=== PATIENT | male | born 1960 | race Caucasian/White ===

== ENCOUNTER 2018-11-24 01:16 | Emergency (ER) | payer SELFPAY ==
[~2018-11-24] VITALS: Ht 185.4 cm; Wt 95.5 kg
[2018-11-24] MEDS ORDERED: ACETAMINOPHEN 500 MG TABLET PO ONE (03:30)
[2018-11-24] MEDS ORDERED: IBUPROFEN 600 MG TABLET PO ONE (03:30)
[2018-11-24 04:50] VITALS: BP 122/67
== END 2018-11-24 04:55 | disposition home or self-care (01) ==
LOC: EMS 01:18
DX: M79.632 Pain in left forearm (principal); F17.210 Nicotine dependence, cigarettes, uncomplicated
CPT/HCPCS: 99406

== ENCOUNTER 2019-10-03 08:05 | Emergency (ER) | payer MEDICAID ==
[~2019-10-03] VITALS: Ht 185.4 cm; Wt 95.5 kg
[2019-10-03 10:59] LABS: BASOPHILS % (AUTO) 0.8 % (0.0-2.0); EOSINOPHILS % (AUTO) 3.3 % (1.0-6.0); HEMATOCRIT 39.3 % (41-53); HEMOGLOBIN 13.2 g/dL (13.5-17.5); LYMPHOCYTES # (AUTO) 2.2 K/uL (1.0-4.8); LYMPHOCYTES % (AUTO) 39.8 % (22.0-44.0); MEAN CORPUSCULAR HEMOGLOBIN 31.6 pg (26.0-34.0); MEAN CORPUSCULAR HGB CONC 33.6 G/dL (31.0-37.0); MEAN CORPUSCULAR VOLUME 94 fL (80-100); MONOCYTES # (AUTO) 0.6 K/uL (0.1-1.0); NEUTROPHILS # (AUTO) 2.5 K/uL (1.8-7.7); NEUTROPHILS % (AUTO) 45.1 % (40.0-70.0); PLATELET COUNT (AUTO) 216 K/uL (150-450); RED BLOOD CELL COUNT(AUTO) 4.18 MIL/uL (4.50-5.90); RED CELL DISTRIBUTION WIDTH 14.1 % (11.5-14.5)
[2019-10-03 11:08] LABS: ANION GAP 4 mmol/L (8-16); CALCIUM, TOTAL 8.8 mg/dL (8.8-10.5); CARBON DIOXIDE 27 mmol/L (22-29); CHLORIDE 107 mmol/L (98-107); CREATININE 1.23 mg/dL (0.60-1.30); GLOMERULAR FILTR. RATE CALC > 60 mL/min (>60); GLUCOSE,RANDOM 93 mg/dL (70-110); POTASSIUM 4.2 mmol/L (3.5-5.1); SODIUM SERUM 138 mmol/L (136-145); UREA NITROGEN, BLOOD 13 mg/dL (7-18)
[2019-10-03 11:14] LABS: ALANINE AMINOTRANSFERASE 30 U/L (12-78); ALBUMIN 3.4 g/dL (3.4-5.0); ALKALINE PHOSPHATASE 91 U/L (46-116); ASPARTATE AMINOTRANSFERASE 16 U/L (15-37); BILIRUBIN,TOTAL 0.4 mg/dL (0.1-1.0); LIPASE 565 U/L (73-393); TOTAL PROTEIN, SERUM 6.7 g/dL (6.4-8.2)
[2019-10-03 11:45] VITALS: BP 126/70
== END 2019-10-03 11:59 | disposition home or self-care (01) ==
LOC: EMS 08:08
DX: K90.9 Intestinal malabsorption, unspecified (principal); F17.210 Nicotine dependence, cigarettes, uncomplicated

== ENCOUNTER 2021-07-14 10:02 | Emergency (ER) | payer MEDICAID, OTHER ==
[~2021-07-14] VITALS: Ht 188 cm; Wt 100.0 kg
[2021-07-14] MEDS ORDERED: METHOCARBAMOL 500 MG TABLET PO ONE (11:30)
[2021-07-14] MEDS ORDERED: KETOROLAC TROMETHAMINE 60 MG/2 ML VIAL IM ONE (11:30)
[2021-07-14] MEDS ORDERED: NAPR-1025 PO (11:33)
[2021-07-14] MEDS ORDERED: GABA-1216 PO (11:33)
[2021-07-14] MEDS ORDERED: METH-812 PO (11:33)
[2021-07-14 11:57] VITALS: BP 136/75
== END 2021-07-14 12:00 | disposition home or self-care (01) ==
LOC: EMS 10:06
DX: S46.812A Strain of other muscles, fascia and tendons at shoulder and upper arm level, left arm, initial encounter (principal); F10.20 Alcohol dependence, uncomplicated; F17.210 Nicotine dependence, cigarettes, uncomplicated; X58.XXXA Exposure to other specified factors, initial encounter; Y93.89 Activity, other specified; Y92.89 Other specified places as the place of occurrence of the external cause; Y99.8 Other external cause status
CPT/HCPCS: 96372; 99283; J1885

== ENCOUNTER 2021-07-20 13:06 | Emergency (ER) | payer OTHER ==
[~2021-07-20] VITALS: Ht 185.4 cm; Wt 100.0 kg
[~2021-07-20 13:06] MED LIST: GABA-1216 PO; METH-812 PO; NAPR-1025 PO
[2021-07-20 13:29] VITALS: BP 148/86
[2021-07-20] MEDS ORDERED: TraMADol HCL 50 MG TABLET PO ONE (15:00)
== END 2021-07-20 15:50 | disposition home or self-care (01) ==
LOC: EMS 13:07
DX: M62.830 Muscle spasm of back (principal); F17.210 Nicotine dependence, cigarettes, uncomplicated
CPT/HCPCS: 99283

== ENCOUNTER 2024-06-13 05:25 | Emergency (ER) | payer MEDICAID, OTHER ==
[~2024-06-13] VITALS: Ht 185.4 cm; Wt 109.1 kg
[~2024-06-13 05:25] MED LIST changes: -NAPR-1025 PO
[2024-06-13 05:33] VITALS: BP 144/87; PULSE 76; RESP 16; TEMP 98.1; O2SAT 98
[2024-06-13] MEDS: IBUPROFEN 600 MG TABLET PO ONE (06:25)
[2024-06-13] MEDS ORDERED: IBUP-1492 PO (06:30)
== END 2024-06-13 06:39 | disposition home or self-care (01) ==
LOC: EMS 05:27
DX: M25.562 Pain in left knee (principal); I10 Essential (primary) hypertension; F17.210 Nicotine dependence, cigarettes, uncomplicated; Z79.899 Other long term (current) drug therapy
CPT/HCPCS: 29530; 99283

== ENCOUNTER 2025-01-09 18:51 | Emergency (ER) | payer MEDICAID, OTHER ==
[~2025-01-09] VITALS: Ht 185.4 cm; Wt 63.6 kg
[~2025-01-09 18:51] MED LIST changes: +IBUP-1492 PO
[2025-01-09 19:01] VITALS: BP 161/91; PULSE 86; RESP 18; TEMP 98.3; O2SAT 99
[2025-01-09] MEDS: BACITRACIN 0.9 GM PACKET OINTMENT TP ONE (21:59)
[2025-01-09] MEDS: PERTUSS(ACELL),DIPH,TET/PF 0.5 ML SYRINGE [ADULT] IM. ONE (21:59)
[2025-01-09] MEDS: DOXYCYCLINE HYCLATE 100 MG TABLET PO ONE (21:59)
[2025-01-09] MEDS ORDERED: CEPH-558 PO (22:06)
[2025-01-09] MEDS ORDERED: LEVO750T68 PO (22:06)
[2025-01-09] MEDS ORDERED: DOXY-354 PO (22:11)
== END 2025-01-09 22:18 | disposition home or self-care (01) ==
LOC: EMS 18:51
DX: S91.331A Puncture wound without foreign body, right foot, initial encounter (principal); F17.210 Nicotine dependence, cigarettes, uncomplicated; W45.0XXA Nail entering through skin, initial encounter; Y93.89 Activity, other specified; Y92.89 Other specified places as the place of occurrence of the external cause; Y99.8 Other external cause status
CPT/HCPCS: 90471; 90715; 99284